=== PATIENT | male | born 1950 | race Caucasian/White ===

== ENCOUNTER 2018-05-10 09:00 | Outpatient (RCR) | payer MEDICARE, OTHER ==
[~2018-05-10 09:00] MED LIST: CETIRIZINE HCL10 MG PO; HYDRODIURIL; METHYLPREDNISOLO4 MG PO; NEXIUM40 MG PO; VIMOVO PO; Z.0.AMLODIPINE BESY1 PO; Z.0.NAPROXEN500 MG PO; Z.0.OMEPRAZOLE20 M1 PO; Z.0.ZOLOFT25 MG PO; [UNRECOGNIZED DRUG - OTHER] PO
== END 2018-05-11 ==
LOC: PT 09:00
PROVIDERS: ATTEND Family Medicine
DX: M51.37 Other intervertebral disc degeneration, lumbosacral region (principal); M62.81 Muscle weakness (generalized); M54.5 Low back pain; M53.87 Other specified dorsopathies, lumbosacral region
CPT/HCPCS: 97110 ×2; 97161; G8981; G8982

== ENCOUNTER 2018-05-17 09:00 | Outpatient (RCR) | payer MEDICARE, OTHER | END 2018-06-10 | LOC: PT 09:00 | PROVIDERS: ATTEND Family Medicine | DX: M51.37 Other intervertebral disc degeneration, lumbosacral region (principal); M54.2 Cervicalgia; M53.82 Other specified dorsopathies, cervical region; M62.81 Muscle weakness (generalized) ==

== ENCOUNTER → 2018-09-07 | Outpatient (CLI) | payer MEDICARE, OTHER ==
--- NOTE | 2018-09-07 15:29 | Diagnostic Imaging Report ---
MRI SPINE CERVICAL WO HISTORY: Neck pain, chronic COMPARISON: None. TECHNIQUE: Sagittal T1, sagittal T2, sagittal inversion recovery, axial T2 and axial T1 weighted MR images of the cervical spine were obtained without intravenous contrast. Motion and noise artifacts obscure some details. DISCUSSION: ACDF changes at C3-C4 present. Associated hardware susceptibility artifacts obscure some details. Alignment: Normal lordosis. No scoliosis. Vertebrae: No definite evidence for fractures, infection, or neoplasm. Cervicomedullary junction: No abnormalities. Spinal cord: The right ventral cord is mildly indented by posterior disc osteophyte complex at C3-C4. The ventral cord is mildly flattened by disc on the left at C4-C5 and centrally at C5-C6. The cord is otherwise grossly normal and signal and morphology from the foramen magnum through T3-T4. Soft tissues: No signal abnormalities. Additional findings: Small right maxillary sinus retention cyst is partially visualized. There is moderate disc degeneration from C4-C5 to C6-C7 with nonspecific minimal inflammatory endplate changes (from C4-C5 to C6-C7). Mild atlantoaxial arthrosis is present as well. C2-C3: Patent canal and foramina. C3-C4: Mild canal stenosis due to right posterior disc osteophyte complex and ligamentum flavum thickening. Mild to moderate right and mild left foraminal stenoses due to uncovertebral and facet arthrosis. C4-C5: Moderate canal stenosis due to posterior disc osteophyte complex and ligamentum flavum thickening. Mild right and severe left foraminal stenoses due to uncovertebral and facet arthrosis. C5-C6: Moderate canal stenosis due to posterior disc osteophyte complex and ligamentum flavum thickening. Severe bilateral foraminal stenoses due to uncovertebral facet arthrosis. C6-C7: Mild canal stenosis due to posterior disc osteophyte complex and ligamentum flavum thickening. Moderate to severe right and mild to moderate left foraminal stenoses due to uncovertebral and facet arthrosis. C7-T1: Patent canal and foramina. IMPRESSION: 1. ACDF changes at C3-C4. 2. Moderate disc degeneration from C4-C5 to C6-C7 with nonspecific minimal inflammatory endplate changes. 3. Multilevel degenerative canal stenoses - moderate at C4-C5 and C5-C6. 4. Multilevel degenerative foraminal stenoses - severe on the left at C4-C5; severe bilaterally at C5-C6; moderate to severe on the right at C6-C7. Signed by: Dr. Jed Conn M.D. on 09/07/2018 3:26 PM
--- NOTE | 2018-09-07 15:46 | Diagnostic Imaging Report ---
MRI SPINE LUMBAR WO HISTORY: Chronic back pain COMPARISON: Report from CT of the abdomen and pelvis dated 03/30/2012 (images not available at time of dictation) TECHNIQUE: Sagittal T1, sagittal T2, sagittal STIR, axial T2, coronal T2, and axial proton density weighted images of the lumbar spine were obtained without contrast. Motion artifacts obscure some details. DISCUSSION: Posterior fusion and laminectomy changes at L5-S1 are present. Associated hardware susceptibility artifacts obscure some details. Severe underlying L5-S1 disc degeneration is present. Number of non-rib bearing lumbar vertebral bodies: 5. Alignment: Normal lordosis. No scoliosis. Vertebrae: No definite evidence for acute fracture, or neoplasm. Conus medullaris: Normal, ends at upper L1 level. Cauda equina: No masses or arachnoiditis. Posterior paraspinal muscles: Well preserved. Posterior incision signal changes are present. Soft tissues: There are a few small perineural cysts in the upper sacral canal. Additional findings: Colonic diverticulosis is partially visualized. There is mild disc degeneration above the fusion level. There are nonspecific minimal inflammatory endplate changes at T12-L1. T12-L1: Disc bulge without significant canal or foraminal stenosis. L1-L2: Disc bulge without significant canal or foraminal stenosis. L2-L3: Mild canal stenosis due to disc bulge and ligamentum flavum thickening. No significant foraminal stenosis. L3-L4: Mild canal stenosis due to disc bulge and ligamentum flavum thickening. No significant foraminal stenosis. L4-L5: Laminectomy level without significant canal stenosis. Mild to moderate right and mild left foraminal stenoses due to disc bulge and facet arthrosis. L5-S1: Grade 1 anterolisthesis of L5 on S1 with possible chronic bilateral L5 pars defects. Mild to moderate bilateral foraminal stenoses due to posterior disc osteophyte complex and facet arthrosis. No significant canal stenosis IMPRESSION: 1. Posterior fusion/laminectomy changes at L5-S1 with severe underlying L5-S1 disc degeneration. Associated grade 1 anterolisthesis of L5 on S1 with possible chronic bilateral L5 pars defects. 2. Mild disc degeneration above the fusion level. Nonspecific minimal inflammatory endplate changes at T12-L1. 3. Degenerative foraminal stenoses - mild to moderate right and mild left at L4-L5; mild to moderate bilaterally at L5-S1. 4. Mild degenerative canal stenoses at L2-L3 and L3-L4. Signed by: Dr. Jed Conn M.D. on 09/07/2018 3:43 PM
== END ==
LOC: MRI 13:23
PROVIDERS: ATTEND Family Medicine
DX: M51.37 Other intervertebral disc degeneration, lumbosacral region (principal); M50.30 Other cervical disc degeneration, unspecified cervical region; M54.2 Cervicalgia; M51.36 Other intervertebral disc degeneration, lumbar region
CPT/HCPCS: 72141; 72148

== ENCOUNTER → 2018-09-27 | Day surgery (SDC) | payer MEDICARE, OTHER ==
[~2018-09-27] MED LIST changes: +ALBUTEROL SULFAT2 MG PO; +FENTANYL CITRATE/PF 100MCG/2 ML INJ ONE; +HYDROCHLOROTHIA25 MG; +LIDOCAINE HCL 1% 2 ML AMP ONE; +MIDAZOLAM HCL 2 MG/2 ML VIAL ONE; +OR PHACO EYE KIT ONE; +PREOP PHACO EYE KIT ONE
--- OUTSIDE RECORDS SUMMARY | 2018-09-27 12:46 | XMS REPORT ---
Author Author [facility] Address Unknown Phone Unavailable Care Team Providers Care Scleroscope Tester Name Role Phone Miriam MCLEAN Unavailable Unavailable Problems This patient has no known problems. Allergies, Adverse Reactions, Alerts This patient has no known allergies or adverse reactions. Medications This patient has no known medications. Results Test Description Test Time Test Comments Text Results Atomic Results Result Comments MRI SPINE LUMBAR WO 2018-09-07 15:33:00 [place] [address] Patient Name: ANDREIA WESTBROOK MR #: [id number] : 1950 Age/Sex: 68/M Req #: [id number] [facility] Physician: Ordered by: DESIRAE MCLEAN MD Report #: [id number] Location: MRI Room/Bed: Procedure: [id number] MRI/MRI SPINE LUMBAR WO Exam Date: 09/07/18 Exam Time: 1345 REPORT STATUS: Signed MRI SPINE LUMBAR WO HISTORY: Chronic back pain COMPARISON: Report from CT of the abdomen and pelvis dated 03/30/2012 (images not available at time of dictation) TECHNIQUE: Sagittal T1, sagittal T2, sagittal STIR, axial T2, coronal T2, and axial proton density weighted images of the lumbar spine were obtained without contrast. Motion artifacts obscure some details. DISCUSSION: Posterior fusion and laminectomy changes at L5-S1 are present. Associated hardware susceptibility artifacts obscure some details. Severe underlying L5-S1 disc degeneration is present. Number of non-rib bearing lumbar vertebral bodies: 5. Alignment: Normal lordosis. No scoliosis. Vertebrae: No definite evidence for acute fracture, or neoplasm. Conus medullaris: Normal, ends at upper L1 level. Cauda equina: No masses or arachnoiditis. Posterior paraspinal muscles: Well preserved. Posterior incision signal changes are present. Soft tissues: There are a few small perineural cysts in the upper sacral canal. Additional findings: Colonic diverticulosis is partially visualized. There is mild disc degeneration above the fusion level. There are nonspecific minimal inflammatory endplate changes at T12-L1. T12-L1: Disc bulge without significant canal or foraminal stenosis. L1-L2: Disc bulge without significant canal or foraminal stenosis. L2-L3: Mild canal stenosis due to disc bulge and ligamentum flavum thickening. No significant foraminal stenosis. L3-L4: Mild canal stenosis due to disc bulge and ligamentum flavum thickening. No significant foraminal stenosis. L4-L5: Laminectomy level without significant canal stenosis. Mild to moderate right and mild left foraminal stenoses due to disc bulge and facet arthrosis. L5-S1: Grade 1 anterolisthesis of L5 on S1 with possible chronic bilateral L5 pars defects. Mild to moderate bilateral foraminal stenoses due to posterior disc osteophyte complex and facet arthrosis. No significant canal stenosis IMPRESSION: 1. Posterior fusion/laminectomy changes at L5-S1 with severe underlying L5-S1 disc degeneration. Associated grade 1 anterolisthesis of L5 on S1 with possible chronic bilateral L5 pars defects. 2. Mild disc degeneration above the fusion level. Nonspecific minimal inflammatory endplate changes at T12-L1. 3. Degenerative foraminal stenoses - mild to moderate right and mild left at L4-L5; mild to moderate bilaterally at L5-S1. 4. Mild degenerative canal stenoses at L2-L3 and L3-L4. Signed by: Dr. Jed Conn M.D. on 09/07/2018 3:43 PM Dictated By: JED CONN MD 1543 Transcribed By: AMADO on 09/07/18 1541 COPY TO: DESIRAE MCLEAN MD MRI SPINE CERVICAL WO 2018-09-07 15:16:00 [facility] [address] [address] Patient Name: ANDREIA WESTBROOK MR #: [id number] : 1950 Age/Sex: 68/M Req #: [id number] Physician: Ordered by: DESIRAE MCLEAN MD Report #: [id number] Location: MRI Room/Bed: Procedure: [id number] MRI/MRI SPINE CERVICAL WO Exam Date: 09/07/18 Exam Time: 1345 REPORT STATUS: Signed MRI SPINE CERVICAL WO HISTORY: Neck pain, chronic COMPARISON: None. TECHNIQUE: Sagittal T1, sagittal T2, sagittal inversion recovery, axial T2 and axial T1 weighted MR images of the cervical spine were obtained without intravenous contrast. Motion and noise artifacts obscure some details. DISCUSSION: ACDF changes at C3-C4 present. Associated hardware susceptibility artifacts obscure some details. Alignment: Normal lordosis. No scoliosis. Vertebrae: No definite evidence for fractures, infection, or neoplasm. Cervicomedullary junction: No abnormalities. Spinal cord: The right ventral cord is mildly indented by pos terior disc osteophyte complex at C3-C4. The ventral cord is mildly flattened by disc on the left at C4-C5 and centrally at C5-C6. The cord is otherwise grossly normal and signal and morphology from the foramen magnum through T3- T4. Soft tissues: No signal abnormalities. Additional findings: Small right maxillary sinus retention cyst is partially visualized. There is moderate disc degeneration from C4-C5 to C6-C7 with nonspecific minimal inflammatory endplate changes (from C4-C5 to C6-C7). Mild atlantoaxial arthrosis is present as well. C2-C3: Patent canal and foramina. C3-C4: Mild canal stenosis due to right posterior disc osteophyte complex and ligamentum flavum thickening. Mild to moderate right and mild left foraminal stenoses due to uncovertebral and facet arthrosis. C4-C5: Moderate canal stenosis due to posterior disc osteophyte complex and ligamentum flavum thickening. Mild right and severe left foraminal stenoses due to uncovertebral and facet arthrosis. C5-C6: Moderate canal stenosis due to posterior disc osteophyte complex and ligamentum flavum thickening. Severe bilateral foraminal stenoses due to uncovertebral facet arthrosis. C6-C7: Mild canal stenosis due to posterior disc osteophyte complex and ligamentum flavum thickening. Moderate to severe right and mild to moderate left foraminal stenoses due to uncovertebral and facet arthrosis. C7-T1: Patent canal and foramina. IMPRESSION: 1. ACDF changes at C3-C4. 2. Moderate disc degeneration from C4-C5 to C6-C7 with nonspecific minimal inflammatory endplate changes. 3. Multilevel degenerative canal stenoses - moderate at C4-C5 and C5-C6. 4. Multilevel degenerative foraminal stenoses - severe on the left at C4-C5; severe bilaterally at C5-C6; moderate to severe on the right at C6-C7. Signed by: Dr. Jed Conn M.D. on 09/07/2018 3:26 PM Dictated By: JED CONN MD 1526 Transcribed By: AMADO on 09/07/18 1526 COPY TO: DESIRAE MCLEAN MD
--- OUTSIDE RECORDS SUMMARY | 2018-09-27 12:46 | XMS REPORT ---
Author Author Admin, [place] [facility] Address Unknown Phone Unavailable Allergies, Adverse Reactions, Alerts Allergy Name Reaction Description Start Date Severity Status Provider No Known Allergies Maryaphillip Reyesados [employer] Conditions or Problems Problem Name Problem Code Onset Date Status Entry Date Provider Comment Standard Description Annotate Depression 311 Active Juan Quintanilla MD Depressive disorder, not elsewhere classified Hypertension 401.1 Active Juan Quintanilla MD Benign essential hypertension Allergic rhinitis 477.9 Active Juan Quintanilla MD Allergic rhinitis, cause unspecified Smoker 305.1 Active Juan Quintanilla MD Tobacco use disorder GERD 530.81 Active Juan Quintanilla MD Esophageal reflux Medication List Medication Instructions Start Date Stop Date Generic Name NDC Status Provider Patient Instruction AMLODIPINE BESYLATE 10 MG ORAL TABLET 1 tab by mouth daily AMLODIPINE BESYLATE 81531991028 Active Juan Quintanilla MD Active HYDROCHLOROTHIAZIDE 25 MG ORAL TABLET 1 by mouth every day HYDROCHLOROTHIAZIDE 94616140440 Active Juan Quintanilla MD Active SERTRALINE HCL 50 MG ORAL TABLET take one tab By Mouth Every Day SERTRALINE HCL 17951596166 Active Juan Quintanilla MD Active BUPROPION HCL ER (SR) 150 MG ORAL TABLET EXTENDED RELEASE 12 HOUR take one tab By Mouth Twice a Day BUPROPION HCL 41226891599 Active Juan Quintanilla MD Active PREDNISONE 20 MG ORAL TABLET take one tab by mouth every day for 10 days PREDNISONE 45660431207 Active Juan Quintanilla MD Active TRANSDERM-SCOP (1.5 MG) 1 MG/3DAYS TRANSDERMAL PATCH 72 HOUR apply one patch at least 4 hours before travel and changed every 72 hours as needed SCOPOLAMINE BASE 85922872938 Active Juan Quintanilla MD Active CHANTIX CONTINUING MONTH KATALINA 1 MG ORAL TABLET one tablet by mouth twice a day for 8 more weeks for 12 total weeks of therapy CHANTIX CONTINUING MONTH KATALINA 1 MG ORAL TABLET VARENICLINE TARTRATE Inactive CHANTIX STARTING MONTH KATALINA 0.5 MG X 11 & 1 MG X 42 ORAL TABLET take 0.5 mg daily for 3 days then twice a day for 4 days. Then take 1mg twice a day for 11 more weeks CHANTIX STARTING MONTH KATALINA 0.5 MG X 11 & 1 MG X 42 ORAL TABLET VARENICLINE TARTRATE Inactive CHANTIX CONTINUING MONTH KATALINA 1 MG ORAL TABLET one tablet by mouth twice a day for 8 more weeks for 12 total weeks of therapy VARENICLINE TARTRATE 79939789891 No Longer Active Juan Quintanilla MD Active CHANTIX STARTING MONTH KATALINA 0.5 MG X 11 & 1 MG X 42 ORAL TABLET take 0.5 mg daily for 3 days then twice a day for 4 days. Then take 1mg twice a day for 11 more weeks VARENICLINE TARTRATE [id number] No Longer Active Juan Quintanilla MD Active Vital Signs Date Name Value Unit Range Description blood pressure, diastolic 82 mm[Hg] BP spain blood pressure, systolic 130 mm[Hg] BP sys height E&M 70 [in_us] Bdy height pulse rate E&M 74 /min Heart rate respiratory rate E&M 18 /min Resp rate temperature E&M 97.8 [degF] Body temperature weight E&M 200.25 [lb_av] Weight Measured blood pressure, diastolic 79 mm[Hg] BP spain blood pressure, systolic 122 mm[Hg] BP sys height E&M 70 [in_us] Bdy height pulse rate E&M 70 /min Heart rate respiratory rate E&M 18 /min Resp rate temperature E&M 97.5 [degF] Body temperature weight E&M 199.38 [lb_av] Weight Measured blood pressure, diastolic 77 mm[Hg] BP spain blood pressure, systolic 131 mm[Hg] BP sys height E&M 70 [in_us] Bdy height pulse rate E&M 80 /min Heart rate respiratory rate E&M 18 /min Resp rate temperature E&M 97.6 [degF] Body temperature weight E&M 200.38 [lb_av] Weight Measured blood pressure, diastolic 78 mm[Hg] BP spain blood pressure, systolic 123 mm[Hg] BP sys height E&M 70 [in_us] Bdy height pulse rate E&M 57 /min Heart rate temperature E&M 97.7 [degF] Body temperature weight E&M 191.13 [lb_av] Weight Measured Encounters Date Encounter Provider Code Facility 10:31:11 [employer] MANAGER Est Patient Exp Problem - [id number] Juan Quintanilla MD [id number] [facility] 09:30:08 RETAIL AREA MANAGER Est Patient Exp Problem - [id number] Juan Quintanilla MD [id number] [facility] 12:13:47 RETAIL AREA MANAGER Est Patient Exp Problem - 60757 Juan Quintanilla MD CPT-[id number] [facility] 10:44:20 CDT New Patient Detailed - 85770 Juan Quintanilla MD CPT-[id number] [facility]
[2018-09-27 15:20] VITALS: BP 139/78
== END | disposition home or self-care (01) ==
LOC: OR 12:42
PROVIDERS: ATTEND Ophthalmology
DX: H25.11 Age-related nuclear cataract, right eye (principal); I10 Essential (primary) hypertension; M54.9 Dorsalgia, unspecified; F32.9 Major depressive disorder, single episode, unspecified; F17.210 Nicotine dependence, cigarettes, uncomplicated
CPT/HCPCS: 66984; J2001; J2250; V2632

== ENCOUNTER → 2018-10-11 | Day surgery (SDC) | payer MEDICARE, OTHER ==
[~2018-10-11] MED LIST changes: -LIDOCAINE HCL 1% 2 ML AMP ONE
[2018-10-11 14:10] VITALS: BP 122/91
== END | disposition home or self-care (01) ==
LOC: OR 11:26
PROVIDERS: ATTEND Ophthalmology
DX: H25.12 Age-related nuclear cataract, left eye (principal); I10 Essential (primary) hypertension; K21.9 Gastro-esophageal reflux disease without esophagitis; F32.9 Major depressive disorder, single episode, unspecified; F41.9 Anxiety disorder, unspecified; F17.200 Nicotine dependence, unspecified, uncomplicated
CPT/HCPCS: 66984; J2250; V2632